=== PATIENT | female | born 1975 | race Caucasian/White ===

== ENCOUNTER 2016-12-21 22:20 | Inpatient (IN) ==
--- NOTE | 2016-12-21 22:33 | Emergency Department Note ---
Disposition Clinical Impression: Acute pancreatitis Disposition: Admitted As Inpatient Referrals: Vimal Munoz Jr, MD [Primary Care Provider] - Abdominal Pain HPI - General Stated Complaint: abd pain, vomiting Time Seen by Provider: 12/21/16 22:33 Source: patient Mode of arrival: private vehicle Limitations: no limitations Nursing Notes Reviewed: Yes Vital Signs Reviewed: Yes - History of Present Illness HPI Narrative: 41-year-old white female presents emergency department via private vehicle complaining of epigastric pain radiating into her back. She says that she has had the pain for the last 2 days and that it got worse this evening. She has a history of having reflux disease, but says that the pain is far worse and different. She admits to drinking alcohol on a regular basis and admits to having 3 liquor drinks last night to try to help her to sleep after work. He had a problem with pancreatitis in the past. Her pain makes her nauseous and she has vomited. Pain does not subside or get worse when she vomits. She is nose no change in her bowel movement, no bloody stools and no tarry black stools. She has had no change in her urination like frequency or urgency. She denies any fever or chills. - Related Data Home Medications Medication Instructions Recorded Confirmed Levothyroxine [Synthroid] 112 mcg PO DAILY 10/25/15 12/21/16 clonazePAM [Klonopin] 1 mg PO TID 10/25/15 12/21/16 Acetaminophen w/Cod 300-30 mg 1 tab PO BID PRN 11/17/16 12/21/16 [Tylenol w/Codeine #3] Escitalopram [Lexapro] 20 mg PO DAILY 11/17/16 12/21/16 Cetirizine HCl/Pseudoephedrine 1 tab-cap PO BID PRN 12/21/16 12/21/16 [All Day Allergy-D Tablet] Esomeprazole Magnesium [Nexium] 20 mg PO DAILY 12/21/16 12/21/16 Previous Rx's Medication Instructions Recorded Butalb/Acetaminophen/Caffeine 1 each PO Q6HR PRN #6 capsule 10/25/15 [Fioricet 50-300-40 mg Capsule] HydrOXYzine Pamoate [Vistaril] 25 mg PO ONCE PRN #2 capsule 11/18/16 Allergies Allergy/AdvReac Type Severity Reaction Status Date / Time baclofen Allergy Hives Verified 12/21/16 22:40 nitrofurantoin Allergy Hives Verified 12/21/16 22:40 [From Macrobid] All systems ED: reviewed and negative except as stated. Constitutional: Denies: fever, chills, weakness, weight change Eyes: Denies: eye pain, eye discharge, vision change ENT ED: Denies: ear pain, throat pain, dental pain, hearing loss, epistaxis, congestion, dysphagia Cardiovascular: Denies: chest pain, palpitations, dyspnea on exertion, edema, syncope Respiratory: Denies: cough, dyspnea, wheezes, hemoptysis, stridor Gastrointestinal: Reports: as per HPI, abdominal pain, nausea, vomiting. Denies : diarrhea, constipation, hematemesis, melena, hematochezia Genitourinary: Reports: as per HPI. Denies: dysuria, frequency, hematuria, discharge Musculoskeletal: Denies: back pain, neck pain, arthralgia, myalgia Integumentary: Denies: rash, abrasion, lesions Neurological: Denies: headache, weakness, numbness, paresthesias, confusion, abnormal gait, vertigo Psychiatric: Denies: anxiety, depression, suicidal thoughts, homicidal thoughts , auditory hallucinations, visual hallucinations Endocrine: Denies: fatigue Hematological/Lymphatic: Denies: easy bleeding, easy bruising Allergic/Immunologic: Denies: facial swelling, urticaria Abdominal Pain PMH - Past Medical History Medical history: Reports: thyroid disease, other Female Surgical History: Reports: cholecystectomy, hysterectomy Psychiatric history: Reports: anxiety, depression, prior suicide attempt, previous psychiatric hospitalization - Social History Smoking status: Current every day smoker Alcohol use: Reports: heavy Drug use: Reports: marijuana Physical Exam - General Limitations: no limitations General appearance: alert, in no apparent distress - Head Head exam: atraumatic, normocephalic, normal inspection - Eye Eye exam: Present: normal appearance, PERRL, EOMI - ENT ENT exam: normal exam, normal oropharynx, mucous membranes moist - Neck Neck exam: Present: normal inspection, full ROM, trachea midline - Chest Chest inspection: Present: normal inspection, symmetric chest wall rise - Respiratory Respiratory exam: Present: normal lung sounds bilaterally - Cardiovascular Cardiovascular exam: Present: regular rate, normal rhythm, normal heart sounds - Abdominal Exam Abdominal exam: Present: soft, tenderness, normal bowel sounds. Absent: distention, guarding, rebound, rigidity, organomegaly, pulsatile mass Abdominal tenderness: Present: epigastrium, moderate - Extremities Exam Extremities exam: Present: normal inspection, full ROM. Absent: tenderness, pedal edema - Back Exam Back exam: Present: normal inspection, full ROM. Absent: tenderness - Neurological Exam Neurological exam: Present: alert, oriented X3 - Psychiatric Psychiatric exam: Present: normal affect, normal mood - Skin Skin exam: Present: warm, dry, intact, normal color Course Course Narrative: The patient remained stable throughout her emergency department stay. She did require additional pain medicine to keep her comfortable. Spoke with Dr. Benavidez at 0300 and the patient will be admitted to the hospital. Vital Signs Temperature 98.4 F 12/21/16 22:44 Pulse Rate 83 12/21/16 22:44 Respiratory Rate 16 12/21/16 22:44 Blood Pressure 133/89 12/21/16 22:44 O2 Sat by Pulse Oximetry 98 12/21/16 22:44 Temperature 98.4 F 12/21/16 22:44 Pulse Rate 83 12/21/16 22:44 Respiratory Rate 16 12/21/16 22:44 Blood Pressure 133/89 12/21/16 22:44 O2 Sat by Pulse Oximetry 98 12/21/16 22:44 Oxygen Delivery Oxygen Delivery Room Air Abdominal Pain - Lab Data Lab results reviewed: Yes I reviewed the patient's lab results. Result diagrams: 12/21/16 23:00 12/21/16 23:00 Lab Results 12/21/16 12/21/16 12/22/16 Range/Units 23:00 23:00 00:30 WBC 17.3 H (4.3-11.1) K/mcL RBC 3.42 L (3.82-4.97) M/mcL Hgb 12.2 (11.5-15.4) g/dL Hct 34.6 L (35.3-44.9) % MCV 101.2 H (83.0-100.0) fL MCH 35.7 H (28.0-33.3) pg MCHC 35.3 (31.6-35.5) g/dL RDW 12.7 (11.5-14.5) % Plt Count 298 (140-400) K/mcL MPV 10.7 (9.4-12.4) fL Immature Gran % 0.7 (0-4) % Seg Neutrophils % 80.0 % Lymphocytes % 11.4 % Monocytes % 6.6 % Eosinophils % 1.0 % Basophils % 0.3 % Neutrophils # 13.8 H (1.6-8.9) K/mcL Lymphocytes # 2.0 (0.6-4.6) K/mcL Monocytes # 1.1 (0.0-1.3) K/mcL Eosinophils # 0.2 (0.0-0.6) K/mcL Basophils # 0.1 (0.0-0.2) K/mcL Sodium 138 (136-145) mEq/L Potassium 3.7 (3.5-4.5) mEq/L Chloride 102 (98-109) mEq/L Carbon Dioxide 23 (19-29) mEq/L BUN 5 L (7-20) mg/dL Creatinine 0.70 (0.57-1.11) mg/dL Est GFR ( Amer) > 60 (> 60) Est GFR (Non-Af Amer) > 60 (> 60) BUN/Creatinine Ratio 7 (6-26) Glucose 108 H (70-99) mg/dL Calculated Osmolality 284 (280-300) Calcium 8.0 L (8.6-10.8) mg/dL Total Bilirubin 0.4 (0.2-1.2) mg/dL AST 57 H (5-34) Units/L ALT 49 (0-55) Units/L Alkaline Phosphatase 101 (38-126) Units/L Serum Total Protein 6.3 (6.0-8.3) g/dL Albumin 3.3 L (3.5-5.0) g/dL Globulin 3.0 (2.4-3.5) g/dL Albumin/Globulin Ratio 1.1 (1.1-2.2) Lipase 324 H (8-78) Units/L Urine Color Yellow (Yellow) Urine Clarity Slightly Cloudy A (Clear) Urine pH 6.0 (5.0-8.0) pH Units Ur Specific [place] 1.010 (1.010-1.025) Urine Protein Negative (Neg-Trace) mg/dL Urine Glucose (UA) Normal (Normal) mg/dL Urine Ketones Negative (Negative) mg/dL Urine Blood Small H (Negative) Urine Nitrite Negative (Negative) Urine Bilirubin Negative (Negative) Urine Urobilinogen Normal (Normal) mg/dL Ur Leukocyte Esterase Negative (Negative) Urine Microscopic RBC 0-3 (0-3) per hpf Urine Microscopic WBC Test Not Performed Ur Squamous Epith Cells Few (None-Few) per lpf Amorphous Sediment Few (Few) Ur Culture Indicated? NO (NO) - Radiology Data Radiology results reviewed: Yes I reviewed the patient's radiology results. CT scan of the abdomen and pelvis with IV and by mouth contrast read by Dr. Mckeon showed ; Acute pancreatitis. Small cystic structure could represent an acute peripancreatic fluid collection or an acute necrotic collection
[2016-12-21] MEDS ORDERED: Ondansetron 4 MG/2 ML VIAL IVP ONE (22:40)
[2016-12-21] MEDS ORDERED: *HR* Morphine 2 MG/ML SYRINGE IVP ONE (22:40)
[2016-12-21] MEDS ORDERED: 0.9 % Sodium Chloride 1,000 ML IVC ONE (22:40)
[2016-12-21 23:12] LABS: Basophils # 0.1 K/mcL (0.0-0.2); Basophils % 0.3 %; Eosinophils # 0.2 K/mcL (0.0-0.6); Hematocrit 34.6 % (35.3-44.9); Hemoglobin 12.2 g/dL (11.5-15.4); Immature Granulocytes % 0.7 % (0-4); Lymphocytes % 11.4 %; Mean Corpuscular HGB Conc 35.3 g/dL (31.6-35.5); Mean Corpuscular Hemoglobin 35.7 pg (28.0-33.3); Mean Corpuscular Volume 101.2 fL (83.0-100.0); Mean Platelet Volume 10.7 fL (9.4-12.4); Monocytes # 1.1 K/mcL (0.0-1.3); Monocytes % 6.6 %; Neutrophils # 13.8 K/mcL (1.6-8.9); Platelet Count 298 K/mcL (140-400); Red Blood Count 3.42 M/mcL (3.82-4.97); Red Cell Distribution Width 12.7 % (11.5-14.5)
[2016-12-21 23:23] LABS: Alanine Aminotransferase 49 Units/L (0-55); Albumin 3.3 g/dL (3.5-5.0); Albumin/Globulin Ratio 1.1 (1.1-2.2); Alkaline Phosphatase 101 Units/L (38-126); Aspartate Amino Transferase 57 Units/L (5-34); BUN/Creatinine Ratio 7 (6-26); Bilirubin,Total 0.4 mg/dL (0.2-1.2); Carbon Dioxide 23 mEq/L (19-29); Chloride 102 mEq/L (98-109); Glucose 108 mg/dL (70-99); Lipase 324 Units/L (8-78); Osmolality,Calculated 284 (280-300); Potassium 3.7 mEq/L (3.5-4.5); Sodium 138 mEq/L (136-145); Total Protein 6.3 g/dL (6.0-8.3); eGFR For African Americans > 60 (> 60); eGFR For Non-African Americans > 60 (> 60)
[2016-12-21 23:24] LABS: Blood Urea Nitrogen 5 mg/dL (7-20)
[2016-12-21] MEDS ORDERED: Ondansetron 4 MG/2 ML VIAL ONE (23:24)
[2016-12-21] MEDS ORDERED: *HR* Morphine 2 MG/ML SYRINGE ONE (23:24)
[2016-12-21] MEDS ORDERED: 0.9 % Sodium Chloride 1,000 ML ONE (23:24)
[2016-12-22] MEDS ORDERED: *HR* HYDROmorphone (PF) 1 MG/ML SYRINGE IVP ONE ×2 (00:17→22:01)
[2016-12-22] MEDS ORDERED: Ondansetron 4 MG/2 ML VIAL IVP ONE (00:17)
[2016-12-22 00:38] LABS: Bilirubin,Urine Negative (Negative); Blood,Urine Small (Negative); Clarity,Urine Slightly Cloudy (Clear); Glucose,Urine (UA) Normal (Normal); Ketones,Urine Negative (Negative); Leukocyte Esterase,Urine Negative (Negative); Nitrite,Urine Negative (Negative); Protein,Urine Negative (Neg-Trace); Urobilinogen,Urine Normal (Normal)
[2016-12-22 00:39] LABS: Color,Urine Yellow (Yellow); RBC,Urine 0-3 per hpf (0-3)
[2016-12-22 00:40] LABS: Amorphous Sediment,Urine Few (Few); Squamous Epithelial Cell,Urine Few per lpf (None-Few)
[2016-12-22] MEDS ORDERED: *HR* Promethazine 25 MG/ML VIAL IVP PRN (03:04)
[2016-12-22] MEDS ORDERED: Ondansetron 4 MG/2 ML VIAL IVP PRN (03:04)
[2016-12-22] MEDS ORDERED: Naloxone 0.4 MG/ML INJ IVP PRN ×2 (03:04→03:56)
[2016-12-22] MEDS ORDERED: *HR* HYDROmorphone 2 MG/ML SYRINGE IVP PRN (03:13)
[2016-12-22] MEDS ORDERED: hydrOXYzine pamoate 25 MG CAPSULE PO PRN ×2 (03:14→03:56)
[2016-12-22] MEDS ORDERED: Loratadine/Pseudophed (12 HR) 1 EACH TABLET PO PRN ×2 (03:14→03:56)
[2016-12-22] MEDS ORDERED: 0.9 % Sodium Chloride 1,000 ML IVC SCH (03:15)
[2016-12-22] MEDS ORDERED: 0.9 % Sodium Chloride 1,000 ML IVC ONE (03:24)
[2016-12-22] MEDS: Ondansetron 4 MG/2 ML VIAL IVP PRN ×3 (04:25→20:56)
[2016-12-22] MEDS: *HR* HYDROmorphone 2 MG/ML SYRINGE IVP PRN ×5 (04:26→20:57)
[2016-12-22] MEDS: 0.9 % Sodium Chloride 1,000 ML IVC SCH ×3 (04:36→21:11)
[2016-12-22] MEDS ORDERED: clonazePAM 1 MG TABLET PO SCH (09:00)
--- NOTE | 2016-12-22 10:13 | Internal Med History&Physical ---
Date of Encounter: 12/22/16 Time of Encounter: 10:08 Assessment and Plan (1) Acute pancreatitis Current visit: Yes Status: Acute Patient is admitted with acute pancreatitis. Likely this is of alcohol abuse etiology. She does have leukocytosis, minimally elevated AST of 57 otherwise LFTs are normal. Lipase 324, calcium 8.[address] scan shows a small cystic lesion, not particularly changed from a month ago but will need to be followed. She is getting IV fluids, NPO except for ice chips, IV Dilaudid, IV Zofran. She is somewhat improved. Amylase is pending at time of dictation. She will follow up labs tomorrow. Right now we are not anticipating complicating factors with this pancreatitis. Qualifiers: Pancreatitis type: alcohol induced Acute pancreatitis complication: no infection or necrosis Qualified Code(s): K85.20 - Alcohol induced acute pancreatitis without necrosis or infection (2) Pancreatic cyst Current visit: Yes Status: Chronic Pancreatic cyst is again seen on CT scan. It was imaged incidentally on a CT scan of the chest at [facility] last month. It is not changed in size. It will need to be followed. (3) Major depressive disorder with current active episode Current visit: Yes Status: Chronic Severe depression and has been suicidal in the past. Currently I do not believe she is a suicide risk at the present time. She is getting counseling by a therapist named Sarah at [facility]. She was restarted on Lexapro which she has used in the past. It has not been helping her with sleep. She is using alcohol to help with getting sleep at night. When she is able to take my mouth we will reinitiate her medications. I have offered psychology evaluation while hospitalized she has declined. Qualifiers: Major depression recurrence: recurrent Major depression episode severity: severe Psychotic features: without psychotic features Qualified Code(s): F33.2 - Major depressive disorder, recurrent severe without psychotic features (4) Alcohol use Current visit: Yes Status: Chronic Excessive alcohol use. She appears to be using this as a treatment for her depression and stressful life. We talked about alcohol cessation. Counseling recommended as well. (5) Tobacco use Current visit: Yes Status: Chronic Chronic tobacco use. Now up to a pack per day. She has smoked for about 20 years. Tobacco cessation has been discussed and I offered assistance. (6) Hypothyroidism Current visit: No Status: Chronic She is therapeutic on her thyroid replacement. She has had a recent TSH. We will resume this when she is able to take by mouth Qualifiers: Hypothyroidism type: acquired Qualified Code(s): E03.9 - Hypothyroidism, unspecified (7) DVT prophylaxis Current visit: No Status: Acute Lovenox will be initiated for DVT prophylaxis asd she will be at bed rest until improved Internal Medicine - H&P: HPI Chief complaint: I have stomach pain and I have been vomiting Admitted From: Emergency Dept Plans for Post Hospital Care: Home History of present illness: Ms. 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 She said she recovered from that and has been getting counseling at [facility] in [place]. Over this past weekend she admits to over-drinking. "It was a weekend thing" of drinking excessive amounts of vodka. She typically drinks 1 or 2 alcoholic drinks to try to sleep, lately that has been up to 3-4 drinks at a time. Over the weekend she overdid it. She then developed diarrhea on Tuesday as well as nausea. Tuesday she started having worsening nausea and abdominal pain and then vomiting. She came to the emergency room but when it became unbearable. She was found to have elevated white blood cell count, elevated lipase and unrelenting nausea and vomiting and abdominal pain. CT scan was consistent with acute pancreatitis as well as a chronic cystic lesion in the pancreas that was seen previously. This morning, a few hours after admission, she is doing somewhat better but still requiring IV Dilaudid every few hours as well as IV Zofran for control of her nausea and vomiting and pain. She has had no fever. No hematemesis. No blood per rectum. She has never had acute pancreatitis that she is aware of. She says she has had excessive alcohol use like this in the past but never ended up like this. She is a smoker of a pack serous per day. Only occasional marijuana use. She denies any other drugs recently. She states she has not been suicidal. She does have thoughts on occasion but has no plan. Her alcohol use was not a suicidal attempt. She has been restarted back on Lexapro per Dr. Munoz. It was helpful in the past, but not doing a great job this time. Her biggest complaint is that she cannot sleep. She works a second shift, gets home at between 12 midnight and 1:00 in the morning, sometimes she is up until 5 or 6 in the morning as she cannot sleep. She used to drink one or two alcoholic drinks to sleep, lately she has been now up to 3-4 drinks at night. 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 She has 4 children ranging from age 10-21. Generally she is working so many hours and not available for equally shared parenting as she had planned. This is very stressful for her for her children to be from her. Usually she sees them on the weekends only - Family History Mother History Unknown: Yes Father History Unknown: Yes Internal Medicine - H&P: Meds Butalb/Acetaminophen/Caffeine [Fioricet 50-300-40 mg Capsule] 1 each PO Q6HR PRN #6 capsule 10/25/15 [Rx] Levothyroxine [Synthroid] 112 mcg PO DAILY 10/25/15 [History] clonazePAM [Klonopin] 1 mg PO TID 10/25/15 [History] Acetaminophen w/Cod 300-30 mg [Tylenol w/Codeine #3] 1 tab PO BID PRN 11/17/16 [ History] Escitalopram [Lexapro] 20 mg PO DAILY 11/17/16 [History] HydrOXYzine Pamoate [Vistaril] 25 mg PO ONCE PRN #2 capsule 11/18/16 [Rx] Cetirizine HCl/Pseudoephedrine [All Day Allergy-D Tablet] 1 tab-cap PO BID PRN 12/21/16 [History] Esomeprazole Magnesium [Nexium] 20 mg PO DAILY 12/21/16 [History] Allergies baclofen Allergy (Verified 12/22/16 04:37) Hives nitrofurantoin [From Macrobid] Allergy (Verified 12/22/16 04:37) Hives ROS unobtainable: due to mental status - Constitutional Constitutional: no chills, no fever(s), no night sweats, no weight loss - EENT Eyes: no loss of vision Additional comments: She does complain of chronic headache. Seems to be generalized. Ears: no ear discharge, no ear pain Nose, mouth and throat: dry mouth, no neck pain, no sinus pressure - Breasts Breasts: no pain - Cardiovascular Cardiovascular ROS IM: palpitations (Does complain of palpitations particularly when she drinks and also with anxiety), no chest pain, no dyspnea, no dyspnea on exertion, no irregular heart rhythm - Respiratory Respiratory: no dyspnea, no hemoptysis, no dyspnea on exertion - Gastrointestinal Gastrointestinal: as per HPI, abdominal pain (She points to the epigastric area. ), bloating, diarrhea, nausea, vomiting, no constipation, no hematemesis, no hematochezia - Genitourinary Genitourinary: no difficulty voiding, no urinary frequency, no urinary urgency, no vaginal discharge Menstruation: post hysterectomy - Musculoskeletal Musculoskeletal ROS IM: no arthralgias, no muscle weakness, no neck pain - Integumentary Integumentary IM: no rash, no jaundice - Neurological Neurological ROS: no confusion, no focal weakness, no frequent falls, no radicular pain - Psychiatric Psychiatric: as per HPI, abnormal sleep pattern, depression, suicidal ideation ( As per history of present illness. None currently.), no hallucinations, no visual hallucinations - Hematologic/Lymphatic Hematologic/Lymphatic: no lymphadenopathy - Constitutional Vitals: Temp Pulse Resp BP Pulse Ox 97.9 F 80 16 111/62 95 12/22/16 07:31 12/22/16 07:31 12/22/16 07:31 12/22/16 07:31 12/22/16 07:31 General appearance: Present: mild distress, A&O X 3, answers questions appropriately Exam: Generally she is quiet. Intermittently she has a wave of pain comes across her abdomen. She is not tearful. She does look somewhat withdrawn. - Eye Eye exam: Present: EOMI, PERRL. Absent: scleral icterus Pupils: Present: PERRL - ENT ENT exam: Present: mucous membranes moist, TM's normal bilaterally - Neck Neck exam general surgery: Present: full ROM. Absent: lymphadenopathy, tenderness, thyromegaly - Respiratory Respiratory exam: Present: decreased breath sounds. Absent: respiratory distress, rhonchi, wheezes - Cardiovascular Cardiovascular exam: Present: RRR, +S1, +S2. Absent: systolic murmur, tachycardia - GI/Abdominal Additional comments: Mildly tender in the epigastrium and left upper quadrant. No liver or spleen enlargement. No guarding or rebound rigidity. No abdominal distention. Bowel sounds are present but slightly diminished. No cutaneous lesions. No jaundice. No pulsatile masses - Extremities Exam Extremities exam: Present: normal capillary refill. Absent: calf tenderness, pedal edema, tenderness - Back Exam Back exam: Absent: CVA tenderness (L), CVA tenderness (R), tenderness, vertebral tenderness - Neurological Exam Neurological exam: Present: alert, altered, CN II-XII intact, oriented X3, no focal deficits, strengths equal and symetr throughout - Psychiatric Psychiatric exam: Present: depressed, flat affect. Absent: agitated, anxious, suicidal ideation Internal Med - H&P Results - Labs CBC & Chem 7: 12/21/16 23:00 12/21/16 23:00 Labs: Labs have been reviewed. She has leukocytosis as well as elevated lipase. Amylase is pending at time of dictation. - Diagnostic Studies CT scan - abdomen Additional comments: CT scan of the abdomen revealed findings consistent with acute pancreatitis. Also a small cystic lesion is present in the pancreas which is essentially unchanged from last month at [facility]. - VTE Documentation of Mechanical Device: Graduated compression elastic hosiery
[2016-12-22] MEDS: clonazePAM 1 MG TABLET PO SCH ×3 (10:52→21:54)
--- NOTE | 2016-12-22 22:30 | Event Note ---
Date of Encounter: 12/22/16 Time of Encounter: 22:29 I reevaluated this patient tonight. She is still rating her pain fairly high. She is requiring 1 mg Dilaudid every 4 hours as well as Zofran. On examination she has epigastric tenderness. She does look comfortable though. No more vomiting. Small amount of ice chips makes her have abdominal pain. We will increase the Dilaudid 2 mg every 4 hours and separate out away from the dosing of the Zofran to see which is more effective. Blood pressure is good. Pulses good.
[2016-12-23] MEDS: Ondansetron 4 MG/2 ML VIAL IVP PRN ×3 (03:46→20:53)
[2016-12-23] MEDS: *HR* HYDROmorphone 2 MG/ML SYRINGE IVP PRN ×5 (03:46→20:53)
[2016-12-23] MEDS: *HR* Enoxaparin 40 MG/0.4 ML SYRINGE SQ SCH (05:21)
[2016-12-23 05:29] LABS: Basophils % 0.3 %; Eosinophils # 0.3 K/mcL (0.0-0.6); Eosinophils % 2.3 %; Hematocrit 32.3 % (35.3-44.9); Hemoglobin 11.2 g/dL (11.5-15.4); Immature Granulocytes % 0.6 % (0-4); Mean Corpuscular HGB Conc 34.7 g/dL (31.6-35.5); Mean Corpuscular Hemoglobin 35.9 pg (28.0-33.3); Mean Corpuscular Volume 103.5 fL (83.0-100.0); Monocytes % 6.9 %; Neutrophils # 10.9 K/mcL (1.6-8.9); Platelet Count 255 K/mcL (140-400); Prothrombin Time 10.6 Seconds (9.4-12.1); Red Blood Count 3.12 M/mcL (3.82-4.97); Red Cell Distribution Width 12.7 % (11.5-14.5); Segmented Neutrophils % 75.9 %
[2016-12-23 05:31] LABS: Activated Partial Thrombo Time 27.5 Seconds (26.0-36.0)
[2016-12-23 05:38] LABS: Alanine Aminotransferase 94 Units/L (0-55); Albumin 2.8 g/dL (3.5-5.0); Alkaline Phosphatase 143 Units/L (38-126); Amylase 90 Units/L (25-125); Aspartate Amino Transferase 67 Units/L (5-34); BUN/Creatinine Ratio 8 (6-26); Bilirubin,Total 0.4 mg/dL (0.2-1.2); Calcium 7.5 mg/dL (8.6-10.8); Carbon Dioxide 23 mEq/L (19-29); Chloride 106 mEq/L (98-109); Globulin 2.8 g/dL (2.4-3.5); Glucose 76 mg/dL (70-99); Osmolality,Calculated 284 (280-300); Potassium 3.3 mEq/L (3.5-4.5); Sodium 139 mEq/L (136-145); Total Protein 5.6 g/dL (6.0-8.3); eGFR For African Americans > 60 (> 60); eGFR For Non-African Americans > 60 (> 60)
[2016-12-23 05:39] LABS: Blood Urea Nitrogen 5 mg/dL (7-20)
[2016-12-23] MEDS: 0.9 % Sodium Chloride 1,000 ML IVC SCH (08:00)
[2016-12-23] MEDS: clonazePAM 1 MG TABLET PO SCH ×3 (08:12→20:54)
[2016-12-23] MEDS: *HR* Promethazine 25 MG/ML VIAL IVP PRN (08:13)
--- NOTE | 2016-12-23 12:41 | Internal Med Progress Note ---
Date of Encounter: 12/23/16 Time of Encounter: 12:38 - Assessment and plan (1) Acute pancreatitis Current Visit: Yes Status: Acute Assessment and plan: Symptomatically improving from her pancreatitis. Still has pain when she takes clear liquids. White count is better. No fever. Mild liver function elevation in transaminases. Potassium needs treated. Continue IV hydration. Nothing by mouth except for small amount of clear liquids Qualifiers: Pancreatitis type: alcohol induced Acute pancreatitis complication: no infection or necrosis Qualified Code(s): K85.20 - Alcohol induced acute pancreatitis without necrosis or infection (2) Pancreatic cyst Current Visit: Yes Status: Chronic (3) Major depressive disorder with current active episode Current Visit: Yes Status: Chronic Assessment and plan: She looks much better today. Does not appear depressed. Qualifiers: Major depression recurrence: recurrent Major depression episode severity: severe Psychotic features: without psychotic features Qualified Code(s): F33.2 - Major depressive disorder, recurrent severe without psychotic features (4) Alcohol use Current Visit: Yes Status: Chronic (5) Tobacco use Current Visit: Yes Status: Chronic (6) Hypothyroidism Current Visit: No Status: Chronic Qualifiers: Hypothyroidism type: acquired Qualified Code(s): E03.9 - Hypothyroidism, unspecified (7) Hypokalemia Current Visit: Yes Status: Acute Assessment and plan: We will add potassium to her IV. (8) DVT prophylaxis Current Visit: No Status: Acute - Subjective Interval history: Patient feels better and was hungry this morning. She had chicken soup and it hurt her stomach. Coffee was okay. (I had ordered only small amount of clear liquids but they brought food) No vomiting. She still requiring IV analgesia and anti-medic on a regular basis. She points to an area senior living between the xiphoid and umbilicus is localized pain. She has not had a bowel movement. - Constitutional Vitals: Temp Pulse Resp BP Pulse Ox 97.6 F 82 18 100/54 96 12/23/16 11:59 12/23/16 11:59 12/23/16 11:59 12/23/16 11:59 12/23/16 11:59 General appearance: Present: A&O X 3, no acute distress, answers questions appropriately Exam: She looks much better. She actually smiled today. She is sitting up and about 80 degrees elevation and better interaction - Respiratory Respiratory exam: Present: CTAB - Cardiovascular Cardiovascular exam: Present: RRR, +S1, +S2. Absent: systolic murmur, tachycardia - GI/Abdominal GI/Abdominal exam: Present: normal bowel sounds Additional comments: She has tenderness senior living between the xiphoid and the umbilicus. No guarding or rebound or rigidity. There is no distention. She basically is nontender at the xiphoid and left upper quadrant where she had pain yesterday. - Extremities Exam Extremities exam: Absent: calf tenderness, pedal edema, tenderness Internal Medicine: Result - Labs CBC & Chem 7: 12/23/16 05:15 12/23/16 05:15 Labs: Short CBC 12/23/16 Range/Units 05:15 WBC 14.3 H (4.3-11.1) K/mcL Hgb 11.2 L (11.5-15.4) g/dL Hct 32.3 L (35.3-44.9) % Plt Count 255 (140-400) K/mcL Neutrophils # 10.9 H (1.6-8.9) K/mcL BMP 12/23/16 05:15 Sodium 139 Potassium 3.3 L Chloride 106 Carbon Dioxide 23 BUN 5 L Creatinine 0.59 Glucose 76 Calcium 7.5 L Liver Function 12/23/16 Range/Units 05:15 Total Bilirubin 0.4 (0.2-1.2) mg/dL AST 67 H (5-34) Units/L ALT 94 H (0-55) Units/L Alkaline Phosphatase 143 H (38-126) Units/L Albumin 2.8 L (3.5-5.0) g/dL Labs have been reviewed. White blood cell count is better. Mildly elevated liver functions. Potassium low at 3.3 - ABG Interpretation ABG results: PT/INR, D-dimer PT 10.6 Seconds (9.4-12.1) 12/23/16 05:15 - VTE Documentation of Mechanical Device: Graduated compression elastic hosiery Consult Discharge Plan - Plan
[2016-12-23] MEDS: 0.9 % Sodium Chloride w KCl 20 MEQ/1,000 ML MLS IVC SCH (14:37)
[2016-12-24] MEDS: *HR* HYDROmorphone 2 MG/ML SYRINGE IVP PRN ×2 (02:13→06:27)
[2016-12-24] MEDS: *HR* Promethazine 25 MG/ML VIAL IVP PRN (02:13)
[2016-12-24] MEDS: 0.9 % Sodium Chloride w KCl 20 MEQ/1,000 ML MLS IVC SCH (02:31)
[2016-12-24 05:46] LABS: Basophils % 0.3 %; Eosinophils # 0.3 K/mcL (0.0-0.6); Eosinophils % 2.9 %; Hematocrit 30.6 % (35.3-44.9); Hemoglobin 10.4 g/dL (11.5-15.4); Immature Granulocytes % 0.3 % (0-4); Lymphocytes # 2.7 K/mcL (0.6-4.6); Lymphocytes % 25.6 %; Mean Corpuscular Hemoglobin 35.6 pg (28.0-33.3); Mean Corpuscular Volume 104.8 fL (83.0-100.0); Mean Platelet Volume 11.6 fL (9.4-12.4); Monocytes # 0.9 K/mcL (0.0-1.3); Monocytes % 8.8 %; Neutrophils # 6.5 K/mcL (1.6-8.9); Platelet Count 263 K/mcL (140-400); Red Blood Count 2.92 M/mcL (3.82-4.97); Segmented Neutrophils % 62.1 %
[2016-12-24 05:58] LABS: Alanine Aminotransferase 61 Units/L (0-55); Albumin 2.6 g/dL (3.5-5.0); Albumin/Globulin Ratio 0.9 (1.1-2.2); Alkaline Phosphatase 134 Units/L (38-126); Aspartate Amino Transferase 32 Units/L (5-34); BUN/Creatinine Ratio 5 (6-26); Bilirubin,Total 0.2 mg/dL (0.2-1.2); Calcium 8.2 mg/dL (8.6-10.8); Carbon Dioxide 25 mEq/L (19-29); Chloride 109 mEq/L (98-109); Globulin 2.9 g/dL (2.4-3.5); Glucose 104 mg/dL (70-99); Osmolality,Calculated 293 (280-300); Potassium 3.7 mEq/L (3.5-4.5); Sodium 143 mEq/L (136-145); Total Protein 5.5 g/dL (6.0-8.3); eGFR For African Americans > 60 (> 60); eGFR For Non-African Americans > 60 (> 60)
[2016-12-24 05:59] LABS: Blood Urea Nitrogen 3 mg/dL (7-20)
[2016-12-24] MEDS: Ondansetron 4 MG/2 ML VIAL IVP PRN (06:27)
[2016-12-24] MEDS: *HR* Enoxaparin 40 MG/0.4 ML SYRINGE SQ SCH (06:27)
[2016-12-24] MEDS: clonazePAM 1 MG TABLET PO SCH (10:38)
[2016-12-24 11:04] VITALS: BP 96/66
--- NOTE | 2016-12-24 12:59 | Discharge Summary ---
Date of Encounter: 12/24/16 Time of Encounter: 12:55 - Discharge Diagnosis (1) Acute pancreatitis Priority: Primary Status: Acute Comments: Patient was admitted with acute pancreatitis on 12/22/16 which was likely of alcohol abuse etiology. She had leukocytosis, minimally elevated AST of 57, lipase 324 amylase 198, calcium 8.[address] scan showed a small cystic lesion, not particularly changed from a month ago when it was found incidentally on a CT scan of the chest. This will need further evaluation/ follow-up. She was made NPO, given IV fluids and parenteral medication including Dilaudid and Zofran. Over the subsequent 2 days she may marked improvement. Her leukocytosis resolved. Amylase normalized. Her liver functions peaked and then improved. She was advanced to a soft diet for lunch and after lunch she was adamant about leaving. She had been ambulatory, not requiring IV analgesia or anti-emetic, she was up and dressed and ready to leave. Her abdomen was soft and nontender. She will follow-up with Dr. Munoz. She will need further evaluation of the pancreatic cyst, particularly in light of the pancreatitis history and her alcohol use. She was discharged in much improved condition. She was not given any pain medication at discharge. I encouraged her to avoid alcohol. Qualifiers: Pancreatitis type: alcohol induced Acute pancreatitis complication: no infection or necrosis Qualified Code(s): K85.20 - Alcohol induced acute pancreatitis without necrosis or infection (2) Pancreatic cyst Priority: Secondary Status: Chronic Comments: Pancreatic cyst was seen incidentally on a CT scan of the chest during her last hospitalization at [facility] a month ago. It did not show any enlargement this time in comparison. She states this is the first time she is ever had pancreatitis. Follow-up of the CT scan will be done as an outpatient later. (3) Major depressive disorder with current active episode Priority: Secondary Status: Chronic Comments: Patient has a history of significant depression. At the present time she is not suicidal. She has been using alcohol as a hypnotic to go to sleep at night. She has been using it to excess prior to coming to the hospital with acute pancreatitis. We talked about alcohol cessation or at least marked decline in use. She will follow-up with her counselor. She will continue her antidepressant and anxiolytic. Qualifiers: Major depression recurrence: recurrent Major depression episode severity: severe Psychotic features: without psychotic features Qualified Code(s): F33.2 - Major depressive disorder, recurrent severe without psychotic features (4) Alcohol use Priority: Secondary Status: Chronic Comments: We talked about total cessation of alcohol at the present time. We talked about self medication with use of alcohol and she needs a follow-up with her counselor. (5) Tobacco use Priority: Secondary Status: Chronic Comments: I recommended tobacco cessation and offered assistance. (6) Hypothyroidism Priority: Secondary Status: Chronic Comments: She is a chronic history of hypothyroidism. Her thyroid level was checked recently. This was not checked during this hospital stay. Qualifiers: Hypothyroidism type: acquired Qualified Code(s): E03.9 - Hypothyroidism, unspecified (7) Hypokalemia Priority: Secondary Status: Acute Comments: She had hypokalemia from the IV saline use. Potassium was added to her subsequent IV and this resolved. - Discharge Medications Home Medications: Butalb/Acetaminophen/Caffeine [Fioricet 50-300-40 mg Capsule] 1 each PO Q6HR PRN #6 capsule 10/25/15 [Rx] Levothyroxine [Synthroid] 112 mcg PO DAILY 10/25/15 [History] clonazePAM [Klonopin] 1 mg PO TID 10/25/15 [History] Acetaminophen w/Cod 300-30 mg [Tylenol w/Codeine #3] 1 tab PO BID PRN 11/17/16 [ History] Escitalopram [Lexapro] 20 mg PO DAILY 11/17/16 [History] HydrOXYzine Pamoate [Vistaril] 25 mg PO ONCE PRN #2 capsule 11/18/16 [Rx] Cetirizine HCl/Pseudoephedrine [All Day Allergy-D Tablet] 1 tab-cap PO BID PRN 12/21/16 [History] Esomeprazole Magnesium [Nexium] 20 mg PO DAILY 12/21/16 [History] Allergies/Adverse Reactions: Allergies baclofen Allergy (Verified 12/22/16 04:37) Hives nitrofurantoin [From Macrobid] Allergy (Verified 12/22/16 04:37) Hives Procedures/tests Complete & Pending: Lab Results 12/21/16 12/21/16 12/22/16 Range/Units 23:00 23:00 00:00 WBC 17.3 H (4.3-11.1) K/mcL RBC 3.42 L (3.82-4.97) M/mcL Hgb 12.2 (11.5-15.4) g/dL Hct 34.6 L (35.3-44.9) % MCV 101.2 H (83.0-100.0) fL MCH 35.7 H (28.0-33.3) pg MCHC 35.3 (31.6-35.5) g/dL RDW 12.7 (11.5-14.5) % Plt Count 298 (140-400) K/mcL MPV 10.7 (9.4-12.4) fL Immature Gran % 0.7 (0-4) % Seg Neutrophils % 80.0 % Lymphocytes % 11.4 % Monocytes % 6.6 % Eosinophils % 1.0 % Basophils % 0.3 % Neutrophils # 13.8 H (1.6-8.9) K/mcL Lymphocytes # 2.0 (0.6-4.6) K/mcL Monocytes # 1.1 (0.0-1.3) K/mcL Eosinophils # 0.2 (0.0-0.6) K/mcL Basophils # 0.1 (0.0-0.2) K/mcL PT (9.4-12.1) Seconds INR APTT (26.0-36.0) Seconds Sodium 138 (136-145) mEq/L Potassium 3.7 (3.5-4.5) mEq/L Chloride 102 (98-109) mEq/L Carbon Dioxide 23 (19-29) mEq/L BUN 5 L (7-20) mg/dL Creatinine 0.70 (0.57-1.11) mg/dL Est GFR ( Amer) > 60 (> 60) Est GFR (Non-Af Amer) > 60 (> 60) BUN/Creatinine Ratio 7 (6-26) Glucose 108 H (70-99) mg/dL POC Glucose (58-89) Calculated Osmolality 284 (280-300) Calcium 8.0 L (8.6-10.8) mg/dL Total Bilirubin 0.4 (0.2-1.2) mg/dL AST 57 H (5-34) Units/L ALT 49 (0-55) Units/L Alkaline Phosphatase 101 (38-126) Units/L Serum Total Protein 6.3 (6.0-8.3) g/dL Albumin 3.3 L (3.5-5.0) g/dL Globulin 3.0 (2.4-3.5) g/dL Albumin/Globulin Ratio 1.1 (1.1-2.2) Amylase 198 H (25-125) Units/L Lipase 324 H (8-78) Units/L Urine Color (Yellow) Urine Clarity (Clear) Urine pH (5.0-8.0) pH Units Ur Specific [place] (1.010-1.025) Urine Protein (Neg-Trace) mg/dL Urine Glucose (UA) (Normal) mg/dL Urine Ketones (Negative) mg/dL Urine Blood (Negative) Urine Nitrite (Negative) Urine Bilirubin (Negative) Urine Urobilinogen (Normal) mg/dL Ur Leukocyte Esterase (Negative) Urine Microscopic RBC (0-3) per hpf Urine Microscopic WBC Ur Squamous Epith Cells (None-Few) per lpf Amorphous Sediment (Few) Ur Culture Indicated? (NO) 12/22/16 12/22/16 12/22/16 Range/Units 00:30 07:05 11:08 WBC (4.3-11.1) K/mcL RBC (3.82-4.97) M/mcL Hgb (11.5-15.4) g/dL Hct (35.3-44.9) % MCV (83.0-100.0) fL MCH (28.0-33.3) pg MCHC (31.6-35.5) g/dL RDW (11.5-14.5) % Plt Count (140-400) K/mcL MPV (9.4-12.4) fL Immature Gran % (0-4) % Seg Neutrophils % % Lymphocytes % % Monocytes % % Eosinophils % % Basophils % % Neutrophils # (1.6-8.9) K/mcL Lymphocytes # (0.6-4.6) K/mcL Monocytes # (0.0-1.3) K/mcL Eosinophils # (0.0-0.6) K/mcL Basophils # (0.0-0.2) K/mcL PT (9.4-12.1) Seconds INR APTT (26.0-36.0) Seconds Sodium (136-145) mEq/L Potassium (3.5-4.5) mEq/L Chloride (98-109) mEq/L Carbon Dioxide (19-29) mEq/L BUN (7-20) mg/dL Creatinine (0.57-1.11) mg/dL Est GFR ( Amer) (> 60) Est GFR (Non-Af Amer) (> 60) BUN/Creatinine Ratio (6-26) Glucose (70-99) mg/dL POC Glucose 100 H 108 H (58-89) Calculated Osmolality (280-300) Calcium (8.6-10.8) mg/dL Total Bilirubin (0.2-1.2) mg/dL AST (5-34) Units/L ALT (0-55) Units/L Alkaline Phosphatase (38-126) Units/L Serum Total Protein (6.0-8.3) g/dL Albumin (3.5-5.0) g/dL Globulin (2.4-3.5) g/dL Albumin/Globulin Ratio (1.1-2.2) Amylase (25-125) Units/L Lipase (8-78) Units/L Urine Color Yellow (Yellow) Urine Clarity Slightly Cloudy A (Clear) Urine pH 6.0 (5.0-8.0) pH Units Ur Specific [place] 1.010 (1.010-1.025) Urine Protein Negative (Neg-Trace) mg/dL Urine Glucose (UA) Normal (Normal) mg/dL Urine Ketones Negative (Negative) mg/dL Urine Blood Small H (Negative) Urine Nitrite Negative (Negative) Urine Bilirubin Negative (Negative) Urine Urobilinogen Normal (Normal) mg/dL Ur Leukocyte Esterase Negative (Negative) Urine Microscopic RBC 0-3 (0-3) per hpf Urine Microscopic WBC Test Not Performed Ur Squamous Epith Cells Few (None-Few) per lpf Amorphous Sediment Few (Few) Ur Culture Indicated? NO (NO) 12/22/16 12/22/16 12/23/16 Range/Units 16:22 19:46 00:01 WBC (4.3-11.1) K/mcL RBC (3.82-4.97) M/mcL Hgb (11.5-15.4) g/dL Hct (35.3-44.9) % MCV (83.0-100.0) fL MCH (28.0-33.3) pg MCHC (31.6-35.5) g/dL RDW (11.5-14.5) % Plt Count (140-400) K/mcL MPV (9.4-12.4) fL Immature Gran % (0-4) % Seg Neutrophils % % Lymphocytes % % Monocytes % % Eosinophils % % Basophils % % Neutrophils # (1.6-8.9) K/mcL Lymphocytes # (0.6-4.6) K/mcL Monocytes # (0.0-1.3) K/mcL Eosinophils # (0.0-0.6) K/mcL Basophils # (0.0-0.2) K/mcL PT (9.4-12.1) Seconds INR APTT (26.0-36.0) Seconds Sodium (136-145) mEq/L Potassium (3.5-4.5) mEq/L Chloride (98-109) mEq/L Carbon Dioxide (19-29) mEq/L BUN (7-20) mg/dL Creatinine (0.57-1.11) mg/dL Est GFR ( Amer) (> 60) Est GFR (Non-Af Amer) (> 60) BUN/Creatinine Ratio (6-26) Glucose (70-99) mg/dL POC Glucose 101 H 94 H 82 (58-89) Calculated Osmolality (280-300) Calcium (8.6-10.8) mg/dL Total Bilirubin (0.2-1.2) mg/dL AST (5-34) Units/L ALT (0-55) Units/L Alkaline Phosphatase (38-126) Units/L Serum Total Protein (6.0-8.3) g/dL Albumin (3.5-5.0) g/dL Globulin (2.4-3.5) g/dL Albumin/Globulin Ratio (1.1-2.2) Amylase (25-125) Units/L Lipase (8-78) Units/L Urine Color (Yellow) Urine Clarity (Clear) Urine pH (5.0-8.0) pH Units Ur Specific [place] (1.010-1.025) Urine Protein (Neg-Trace) mg/dL Urine Glucose (UA) (Normal) mg/dL Urine Ketones (Negative) mg/dL Urine Blood (Negative) Urine Nitrite (Negative) Urine Bilirubin (Negative) Urine Urobilinogen (Normal) mg/dL Ur Leukocyte Esterase (Negative) Urine Microscopic RBC (0-3) per hpf Urine Microscopic WBC Ur Squamous Epith Cells (None-Few) per lpf Amorphous Sediment (Few) Ur Culture Indicated? (NO) 12/23/16 12/23/16 12/23/16 Range/Units 05:15 05:15 05:15 WBC 14.3 H (4.3-11.1) K/mcL RBC 3.12 L (3.82-4.97) M/mcL Hgb 11.2 L (11.5-15.4) g/dL Hct 32.3 L (35.3-44.9) % MCV 103.5 H (83.0-100.0) fL MCH 35.9 H (28.0-33.3) pg MCHC 34.7 (31.6-35.5) g/dL RDW 12.7 (11.5-14.5) % Plt Count 255 (140-400) K/mcL MPV 11.0 (9.4-12.4) fL Immature Gran % 0.6 (0-4) % Seg Neutrophils % 75.9 % Lymphocytes % 14.0 % Monocytes % 6.9 % Eosinophils % 2.3 % Basophils % 0.3 % Neutrophils # 10.9 H (1.6-8.9) K/mcL Lymphocytes # 2.0 (0.6-4.6) K/mcL Monocytes # 1.0 (0.0-1.3) K/mcL Eosinophils # 0.3 (0.0-0.6) K/mcL Basophils # 0.0 (0.0-0.2) K/mcL PT 10.6 (9.4-12.1) Seconds INR 1.0 APTT 27.5 (26.0-36.0) Seconds Sodium 139 (136-145) mEq/L Potassium 3.3 L (3.5-4.5) mEq/L Chloride 106 (98-109) mEq/L Carbon Dioxide 23 (19-29) mEq/L BUN 5 L (7-20) mg/dL Creatinine 0.59 (0.57-1.11) mg/dL Est GFR ( Amer) > 60 (> 60) Est GFR (Non-Af Amer) > 60 (> 60) BUN/Creatinine Ratio 8 (6-26) Glucose 76 (70-99) mg/dL POC Glucose (58-89) Calculated Osmolality 284 (280-300) Calcium 7.5 L (8.6-10.8) mg/dL Total Bilirubin 0.4 (0.2-1.2) mg/dL AST 67 H (5-34) Units/L ALT 94 H (0-55) Units/L Alkaline Phosphatase 143 H (38-126) Units/L Serum Total Protein 5.6 L (6.0-8.3) g/dL Albumin 2.8 L (3.5-5.0) g/dL Globulin 2.8 (2.4-3.5) g/dL Albumin/Globulin Ratio 1.0 L (1.1-2.2) Amylase 90 (25-125) Units/L Lipase (8-78) Units/L Urine Color (Yellow) Urine Clarity (Clear) Urine pH (5.0-8.0) pH Units Ur Specific [place] (1.010-1.025) Urine Protein (Neg-Trace) mg/dL Urine Glucose (UA) (Normal) mg/dL Urine Ketones (Negative) mg/dL Urine Blood (Negative) Urine Nitrite (Negative) Urine Bilirubin (Negative) Urine Urobilinogen (Normal) mg/dL Ur Leukocyte Esterase (Negative) Urine Microscopic RBC (0-3) per hpf Urine Microscopic WBC Ur Squamous Epith Cells (None-Few) per lpf Amorphous Sediment (Few) Ur Culture Indicated? (NO) 12/23/16 12/23/16 12/23/16 Range/Units 07:38 11:37 16:35 WBC (4.3-11.1) K/mcL RBC (3.82-4.97) M/mcL Hgb (11.5-15.4) g/dL Hct (35.3-44.9) % MCV (83.0-100.0) fL MCH (28.0-33.3) pg MCHC (31.6-35.5) g/dL RDW (11.5-14.5) % Plt Count (140-400) K/mcL MPV (9.4-12.4) fL Immature Gran % (0-4) % Seg Neutrophils % % Lymphocytes % % Monocytes % % Eosinophils % % Basophils % % Neutrophils # (1.6-8.9) K/mcL Lymphocytes # (0.6-4.6) K/mcL Monocytes # (0.0-1.3) K/mcL Eosinophils # (0.0-0.6) K/mcL Basophils # (0.0-0.2) K/mcL PT (9.4-12.1) Seconds INR APTT (26.0-36.0) Seconds Sodium (136-145) mEq/L Potassium (3.5-4.5) mEq/L Chloride (98-109) mEq/L Carbon Dioxide (19-29) mEq/L BUN (7-20) mg/dL Creatinine (0.57-1.11) mg/dL Est GFR ( Amer) (> 60) Est GFR (Non-Af Amer) (> 60) BUN/Creatinine Ratio (6-26) Glucose (70-99) mg/dL POC Glucose 67 83 96 H (58-89) Calculated Osmolality (280-300) Calcium (8.6-10.8) mg/dL Total Bilirubin (0.2-1.2) mg/dL AST (5-34) Units/L ALT (0-55) Units/L Alkaline Phosphatase (38-126) Units/L Serum Total Protein (6.0-8.3) g/dL Albumin (3.5-5.0) g/dL Globulin (2.4-3.5) g/dL Albumin/Globulin Ratio (1.1-2.2) Amylase (25-125) Units/L Lipase (8-78) Units/L Urine Color (Yellow) Urine Clarity (Clear) Urine pH (5.0-8.0) pH Units Ur Specific [place] (1.010-1.025) Urine Protein (Neg-Trace) mg/dL Urine Glucose (UA) (Normal) mg/dL Urine Ketones (Negative) mg/dL Urine Blood (Negative) Urine Nitrite (Negative) Urine Bilirubin (Negative) Urine Urobilinogen (Normal) mg/dL Ur Leukocyte Esterase (Negative) Urine Microscopic RBC (0-3) per hpf Urine Microscopic WBC Ur Squamous Epith Cells (None-Few) per lpf Amorphous Sediment (Few) Ur Culture Indicated? (NO) 12/23/16 12/24/16 12/24/16 Range/Units 20:31 04:50 04:50 WBC 10.5 (4.3-11.1) K/mcL RBC 2.92 L (3.82-4.97) M/mcL Hgb 10.4 L (11.5-15.4) g/dL Hct 30.6 L (35.3-44.9) % MCV 104.8 H (83.0-100.0) fL MCH 35.6 H (28.0-33.3) pg MCHC 34.0 (31.6-35.5) g/dL RDW 13.0 (11.5-14.5) % Plt Count 263 (140-400) K/mcL MPV 11.6 (9.4-12.4) fL Immature Gran % 0.3 (0-4) % Seg Neutrophils % 62.1 % Lymphocytes % 25.6 % Monocytes % 8.8 % Eosinophils % 2.9 % Basophils % 0.3 % Neutrophils # 6.5 (1.6-8.9) K/mcL Lymphocytes # 2.7 (0.6-4.6) K/mcL Monocytes # 0.9 (0.0-1.3) K/mcL Eosinophils # 0.3 (0.0-0.6) K/mcL Basophils # 0.0 (0.0-0.2) K/mcL PT (9.4-12.1) Seconds INR APTT (26.0-36.0) Seconds Sodium 143 (136-145) mEq/L Potassium 3.7 (3.5-4.5) mEq/L Chloride 109 (98-109) mEq/L Carbon Dioxide 25 (19-29) mEq/L BUN 3 L (7-20) mg/dL Creatinine 0.62 (0.57-1.11) mg/dL Est GFR ( Amer) > 60 (> 60) Est GFR (Non-Af Amer) > 60 (> 60) BUN/Creatinine Ratio 5 L (6-26) Glucose 104 H (70-99) mg/dL POC Glucose 85 (58-89) Calculated Osmolality 293 (280-300) Calcium 8.2 L (8.6-10.8) mg/dL Total Bilirubin 0.2 (0.2-1.2) mg/dL AST 32 (5-34) Units/L ALT 61 H (0-55) Units/L Alkaline Phosphatase 134 H (38-126) Units/L Serum Total Protein 5.5 L (6.0-8.3) g/dL Albumin 2.6 L (3.5-5.0) g/dL Globulin 2.9 (2.4-3.5) g/dL Albumin/Globulin Ratio 0.9 L (1.1-2.2) Amylase (25-125) Units/L Lipase (8-78) Units/L Urine Color (Yellow) Urine Clarity (Clear) Urine pH (5.0-8.0) pH Units Ur Specific [place] (1.010-1.025) Urine Protein (Neg-Trace) mg/dL Urine Glucose (UA) (Normal) mg/dL Urine Ketones (Negative) mg/dL Urine Blood (Negative) Urine Nitrite (Negative) Urine Bilirubin (Negative) Urine Urobilinogen (Normal) mg/dL Ur Leukocyte Esterase (Negative) Urine Microscopic RBC (0-3) per hpf Urine Microscopic WBC Ur Squamous Epith Cells (None-Few) per lpf Amorphous Sediment (Few) Ur Culture Indicated? (NO) 12/24/16 Range/Units 06:56 WBC (4.3-11.1) K/mcL RBC (3.82-4.97) M/mcL Hgb (11.5-15.4) g/dL Hct (35.3-44.9) % MCV (83.0-100.0) fL MCH (28.0-33.3) pg MCHC (31.6-35.5) g/dL RDW (11.5-14.5) % Plt Count (140-400) K/mcL MPV (9.4-12.4) fL Immature Gran % (0-4) % Seg Neutrophils % % Lymphocytes % % Monocytes % % Eosinophils % % Basophils % % Neutrophils # (1.6-8.9) K/mcL Lymphocytes # (0.6-4.6) K/mcL Monocytes # (0.0-1.3) K/mcL Eosinophils # (0.0-0.6) K/mcL Basophils # (0.0-0.2) K/mcL PT (9.4-12.1) Seconds INR APTT (26.0-36.0) Seconds Sodium (136-145) mEq/L Potassium (3.5-4.5) mEq/L Chloride (98-109) mEq/L Carbon Dioxide (19-29) mEq/L BUN (7-20) mg/dL Creatinine (0.57-1.11) mg/dL Est GFR ( Amer) (> 60) Est GFR (Non-Af Amer) (> 60) BUN/Creatinine Ratio (6-26) Glucose (70-99) mg/dL POC Glucose 97 H (58-89) Calculated Osmolality (280-300) Calcium (8.6-10.8) mg/dL Total Bilirubin (0.2-1.2) mg/dL AST (5-34) Units/L ALT (0-55) Units/L Alkaline Phosphatase (38-126) Units/L Serum Total Protein (6.0-8.3) g/dL Albumin (3.5-5.0) g/dL Globulin (2.4-3.5) g/dL Albumin/Globulin Ratio (1.1-2.2) Amylase (25-125) Units/L Lipase (8-78) Units/L Urine Color (Yellow) Urine Clarity (Clear) Urine pH (5.0-8.0) pH Units Ur Specific [place] (1.010-1.025) Urine Protein (Neg-Trace) mg/dL Urine Glucose (UA) (Normal) mg/dL Urine Ketones (Negative) mg/dL Urine Blood (Negative) Urine Nitrite (Negative) Urine Bilirubin (Negative) Urine Urobilinogen (Normal) mg/dL Ur Leukocyte Esterase (Negative) Urine Microscopic RBC (0-3) per hpf Urine Microscopic WBC Ur Squamous Epith Cells (None-Few) per lpf Amorphous Sediment (Few) Ur Culture Indicated? (NO) Date of admission: 12/22/16 15:25 Primary care physician: Vimal Munoz Jr, MD Discharging clinician: Donald Benavidez Anticipated date of discharge: 12/24/16 - Patient Status Disposition: Home, Self-Care Condition: Good Functional capacity at discharge: independent ambulation Overall status at discharge: patient is progressing back to baseline - Discharge Instructions Instructions: Pancreatitis (DC) Follow Up With: Vimal Munoz Jr, MD [Primary Care Provider] - 12/31/16 11:15 am Forms: Work/School Release - Diet and Activity Activity: increase activity as tolerated Diet: advance to your usual diet Hospital course: Ms. Anderson is a 41 year old female with a history of depression, hypothyroidism , alcohol and tobacco use who was admitted to our hospital via the ER with acute pancreatitis. Please see the above diagnoses and hospital course. She was discharged today much improved and stable condition. She will follow-up with Dr. Munoz as planned. Time spent discussing smoking cessation with patient: 3 to 10 minutes - Time Spent with Patient Total time spent providing and/or coordinating discharge services: - Constitutional Vitals: Temp Pulse Resp BP Pulse Ox 97.9 F 75 18 96/66 98 12/24/16 11:03 12/24/16 11:03 12/24/16 11:03 12/24/16 11:03 12/24/16 11:03 General appearance: Present: A&O X 3, no acute distress, answers questions appropriately - Neck Neck exam general surgery: Absent: tenderness, thyromegaly - Respiratory Respiratory exam: Present: CTAB - Cardiovascular Cardiovascular exam: Present: RRR, +S1, +S2. Absent: systolic murmur - GI/Abdominal GI/Abdominal exam: Present: normal bowel sounds, soft, no peritoneal signs. Absent: distended, guarding, hepatomegaly, rebound, rigid, splenomegaly, tenderness - Extremities Exam Extremities exam: Absent: calf tenderness, pedal edema - Psychiatric Psychiatric exam: Present: flat affect, normal mood. Absent: suicidal ideation - Skin Skin exam: Present: normal color (No jaundice) - VTE Documentation of Mechanical Device: Graduated compression elastic hosiery
== END 2016-12-24 14:15 | disposition home or self-care (01) | DRG 439 ==
LOC: INPGRE 22:20 → EMEROOGRE 22:20 → INPGRE 12-22 03:57
PROVIDERS: ADMIT Family Medicine; ATTEND Family Medicine